=== PATIENT | male | born 1985 | race Hispanic/Latino ===

== ENCOUNTER 2016-08-11 17:18 | Emergency (ER) | payer SELFPAY ==
[~2016-08-11 17:18] MED LIST: Sodium Chloride 0.9% 100 ML BAG ONE; Sodium Chloride Irrig Solution 250 ML BOT ONE
[2016-08-11] MEDS ORDERED: HYDROcodone/Acetaminophen 10/325 mg Tablet ONE (17:41)
[2016-08-11] MEDS ORDERED: Adacel (T-DAP) 0.5 ML VIAL ONE (17:46)
[2016-08-11] MEDS ORDERED: ceFAZolin Sodium 1 GM VIAL ONE ×2 (18:19→18:20)
--- NOTE | 2016-08-11 18:58 | RAD ---
THREE VIEWS OF THE RIGHT FOOT 08/11/16 COMPARISON: None. HISTORY: Trauma. FINDINGS: Prominent soft tissue injuries are seen involving the distal aspect of the first, second, and third toes. The soft tissue injuries appear very prominent dorsally, extending into the region of the bone at the level of the first distal phalanx and possibly the second and third distal phalanges. Direct visualization is required. There is dislocation of the first interphalangeal joint, demonstrating marked widening of at least 8 mm on the oblique view. There is an obliquely oriented interarticular fracture involving the latera l base of the third distal phalanx extending into the third distal interphalangeal joint. There is a subtle similar fracture seen on the oblique image at the base of the second middle phalanx laterall y, extending into the second proximal interphalangeal joint. There is prominent associated soft tiss ue swelling along the dorsal and plantar aspect of the foot. There appears to be a distally displace d fracture involving the distal tip of the third distal phalanx. IMPRESSION: Prominent soft tissue injury involving the first, second and third toes distally. There is an associ ated dislocation of the first interphalangeal joint and there are interarticular fractures involving the third distal phalanx and the second middle phalanx. There is a probable displaced fracture at t he tip of the third distal phalanx as well. POS: [id number]
[2016-08-11] MEDS ORDERED: Triple Antibiotic Oint 1 GM Packet ONE (19:17)
== END 2016-08-11 19:54 | disposition home or self-care (01) ==
LOC: MADERS 17:18
DX: S92.531A Displaced fracture of distal phalanx of right lesser toe(s), initial encounter for closed fracture (principal); S91.114A Laceration without foreign body of right lesser toe(s) without damage to nail, initial encounter; I99.8 Other disorder of circulatory system; W31.9XXA Contact with unspecified machinery, initial encounter
CPT/HCPCS: 12001; 90471; 90715; 96365; J0690; J7050